=== PATIENT | male | born 1990 | race Caucasian/White ===

== ENCOUNTER 2019-03-30 13:50 | Emergency (ER) | payer OTHER ==
[~2019-03-30] VITALS: Ht 167.6 cm; Wt 107.5 kg
[~2019-03-30 13:50] MED LIST: NO CURRENT MEDS
[2019-03-30 13:53] VITALS: Ht 167.6 cm; Wt 107.5 kg
--- NOTE | 2019-03-30 15:51 | ERD ---
ER Documentation Chief Complaint Chief Complaint Complains of blurry vision x 1 month ROS All systems reviewed and are negative except as per history of present illness. Medications Home Meds Reported Medications [No Current Meds] No Conflict Check 04/01/10 Allergies Allergies: Coded Allergies: No Known Drug Allergies (Verified Allergy, Mild, 03/30/19) PMhx/Soc Medical and Surgical Hx: pt denies Medical Hx, pt denies Surgical Hx History of Surgery: No Anesthesia Reaction: No Hx Neurological Disorder: No Hx Respiratory Disorders: No Hx Cardiac Disorders: No Hx Psychiatric Problems: No Hx Miscellaneous Medical Probl: No Hx Alcohol Use: No Hx Substance Use: No Smoking Status: Never smoker Physical Exam Vitals Vital Signs Date Temp Pulse Resp B/P (MAP) Pulse Ox O2 O2 Flow FiO2 Time Delivery Rate 03/30/19 98.7 70 20 131/65 99 13:53 (87) Physical Exam Const: No acute distress Head: Atraumatic Eyes: Normal Conjunctiva ENT: Normal External Ears, Nose and Mouth. Neck: Full range of motion. No meningismus. Resp: Clear to auscultation bilaterally Cardio: Regular rate and rhythm, no murmurs Abd: Soft, non tender, non distended. Normal bowel sounds Skin: No petechiae or rashes Back: No midline or flank tenderness Ext: No cyanosis, or edema Neur: Awake and alert Psych: Normal Mood and Affect Departure Diagnosis: Primary Impression: Blurry vision, left eye Condition: Fair Patient Instructions: Blurred Vision Additional Instructions: Call your primary care doctor TOMORROW for an appointment during the next 1-2 days.See the doctor sooner or return here if your condition worsens before your appointment time. Follow up with ophthalmology recommended DONITA STONE DO March 30, 2019 15:51
== END 2019-03-30 16:01 | disposition home or self-care (01) ==
LOC: FTE 13:50
DX: H53.8 Other visual disturbances (principal)
CPT/HCPCS: 99282